=== PATIENT | female | born 1955 | race Caucasian/White ===

== ENCOUNTER → 2020-12-30 15:44 | Outpatient (CLI) | payer MEDICARE, OTHER, SELFPAY ==
--- NOTE | 2020-12-30 | DI.MRI.S_ITS ---
BREAST MRI OF BOTH BREASTS: 12/30/2020 CLINICAL: Breast cancer. INDICATIONS: Personal history of left breast cancer, family history of breast cancer, post left mastectomy and right excision biopsy, asymptomatic screening. TECHNIQUE: The patient was placed prone in a dedicated breast imaging coil. Precontrast axial STIR and 3D FLASH without fat saturation sequences were obtained. Both before and after bolus injection of contrast, sequential 1-minute axial 3D FLASH with fat saturation sequences for 3 time points, with subtraction images and maximum intensity projections (MIP's) generated. Delayed sagittal FLASH images with fat saturation were also obtained. 20 cc ProHance gadolinium based IV contrast was injected. Computer-aided detection, including computer algorithm analysis of MRI image data for lesion detection and characterization, pharmacokinetic analysis, with further physician review for interpretation, was performed. COMPARISON: [facility], MM TOMOSYNTHESIS SCREENING RT, 08/19/2020, 8:58. [facility], MM TOMOSYNTHESIS SCREENING RT, 08/05/2019, 8:50. [facility], MM SCREENING MAMMO UNRT2D, 07/25/2018, 13:30. FINDINGS: Image quality: Excellent. There is mild multifocal background parenchymal enhancement. Right breast: There is slight skin puckering lateral to the nipple secondary to prior surgical changes. Susceptibility artifact from remaining surgical clips are present subjacent to this. No mass or non masslike enhancement in the right breast. Left breast: Prior mastectomy. No mass or non masslike enhancement in the remaining skin or chest wall. Miscellaneous: There are several small right axillary lymph nodes. There is a single enlarged right axillary level one lymph node, curvilinear in shape, measuring about 7 mm in short axis. Several small rounded intramammary axillary tail lymph nodes are seen, stable compared to prior mammograms. Susceptibility artifact of surgical clips in the left axilla. No other suspicious axillary or internal mammary chain adenopathy. Minimal patchy enhancing consolidation is seen anteriorly in the left lung. The visible portions of the heart, liver, and chest wall are normal. IMPRESSION: INCOMPLETE: NEEDS ADDITIONAL IMAGING EVALUATION 1. Surgical changes of left mastectomy, left axillary dissection and right breast excisional biopsy. 2. No suspicious mass or non masslike enhancement in the right breast. 3. Single borderline right axillary lymph node. Question recent right-sided COVID-19 vaccination. If this is clinically inconsistent, right axillary ultrasound to assess lymph node cortex is recommended. BIRADS 0, clinical assessment and possible right axillary ultrasound is needed. COMMENT: The imaging literature indicates that a negative contrast breast MRI examination has a high sensitivity and a moderate specificity for detecting and excluding invasive carcinomas to a detection threshold of 3-5 mm; nonetheless, appropriate clinical and mammographic follow-up are recommended. MRI is not sensitive for detecting DCIS (ductal carcinoma in situ) and may not detect large invasive neoplasms that show only minimal enhancement such as mucinous carcinoma. If there are suspicious calcifications or clinically worrisome palpable masses, then biopsy should still be considered. Invasive neoplasms can be hidden by co-existent and benign enhancement caused by mastitis, hormone therapy effects, radiation therapy, , and recent biopsy or surgery. False positive examinations can occur in a number of circumstances, including breasts that have recently been subject to invasive procedures and those that contain atypical ductal hyperplasia, hormonally stimulated glandular tissue, fat necrosis, or radial scars. This exam was interpreted at Station ID: [id number]. Electronically Signed By: Karol hammond/:12/31/2020 14:25:52 letter sent: Clinical Evaluation ACR BI-RADS Category 0: Incomplete [id number]
== END ==
PROVIDERS: Referring Provider Family Medicine; Visit Provider Family Medicine
DX: Z12.39 Encounter for other screening for malignant neoplasm of breast (principal); Z85.3 Personal history of malignant neoplasm of breast; Z90.12 Acquired absence of left breast and nipple; Z80.3 Family history of malignant neoplasm of breast
CPT/HCPCS: 77049; A9579

== ENCOUNTER → 2021-02-10 13:08 | Outpatient (CLI) | payer MEDICARE, OTHER, SELFPAY ==
[2021-02-10 13:54] LABS: COVID19 -Nasal RAPID Negative (Negative)
== END ==
PROVIDERS: Visit Provider Family Medicine Sleep Medicine
DX: Z20.822 Contact with and (suspected) exposure to COVID-19 (principal); G47.33 Obstructive sleep apnea (adult) (pediatric); G47.9 Sleep disorder, unspecified; R53.83 Other fatigue; R06.83 Snoring
CPT/HCPCS: 87635; 95810